=== PATIENT | female | born 1945 | race Caucasian/White ===

== ENCOUNTER 2017-07-18 13:32 | Inpatient (IN) | payer OTHER, MEDICAID ==
[~2017-07-18] VITALS: Ht 162.6 cm; Wt 71.9 kg
[2017-07-18 14:04] VITALS: Ht 162.6 cm; Wt 71.9 kg
[2017-07-18 14:33] LABS: microscopic required? NO
[2017-07-18 15:28] LABS: BASOPHIL % 0.2 % (0-2); PLATELET COUNT 228 x10^3mcL (130-400); RED CELL DISTRIBUTION WIDTH 12.8 % (11.5-14.5)
[2017-07-18 15:30] LABS: urine erythrocyte NEGATIVE (NEGATIVE)
[2017-07-18 15:32] LABS: ALKALINE PHOSPHATASE 69 U/L (46-116); ALT/SGPT 34 U/L (14-59); AMYLASE 29 U/L (25-115); AST/SGOT 18 U/L (15-37); BILIRUBIN TOTAL 0.3 mg/dL (0.20-1.00); CALCIUM 8.2 mg/dL (8.5-10.1); CARBON DIOXIDE 25.2 mmol/L (21-32); CHLORIDE SERUM 101 mmol/L (98-107); CREATININE SERUM 0.9 mg/dL (0.6-1.0); GLUCOSE SERUM 307 mg/dL (74-106); HDL CHOLESTEROL 40 mg/dL (40-60); LIPASE 86 IU/L (73-393); SODIUM SERUM 137 mmol/L (136-145); TOTAL PROTEIN, SERUM 6.6 g/dL (6.4-8.2)
[2017-07-18 15:34] LABS: ALBUMIN 3.3 g/dL (3.4-5.0); CHOLESTEROL 127 mg/dL (<200)
[2017-07-18 15:35] LABS: POTASSIUM SERUM 2.8 mmol/L (3.5-5.1)
[2017-07-18 16:24] LABS: MAGNESIUM 1.8 mg/dL (1.8-2.4)
[2017-07-18] MEDS ORDERED: CALCIUM 600 +1 EACH PO (16:37)
[2017-07-18] MEDS ORDERED: GLIPIZIDE2.5 M1 PO ×2 (16:38)
[2017-07-18] MEDS ORDERED: METFORMIN HYDR500 M1 PO (16:38)
[2017-07-18] MEDS ORDERED: NOR10 PO (16:39)
[2017-07-18] MEDS ORDERED: CAPTOPRIL25 MG PO (16:39)
[2017-07-18] MEDS ORDERED: LOVASTATIN20 MG PO (16:39)
[2017-07-18] MEDS ORDERED: PLA75 PO (16:40)
[2017-07-18] MEDS ORDERED: LEVOCETIRIZINE D5 M1 PO (16:40)
[2017-07-18] MEDS ORDERED: HYDROCHLOROTHIA25 MG PO (16:40)
[2017-07-18] MEDS ORDERED: NATURAL E400 IU PO (16:41)
[2017-07-18] MEDS ORDERED: ASPIR 8181 MG PO (16:41)
[2017-07-18 17:32] VITALS: BP 137/74
[2017-07-18 19:16] VITALS: BP 137/74
[2017-07-18 20:53] LABS: CALCIUM 8.3 mg/dL (8.5-10.1); CARBON DIOXIDE 26.6 mmol/L (21-32); CHLORIDE SERUM 102 mmol/L (98-107); CREATININE SERUM 0.8 mg/dL (0.6-1.0); GLUCOSE SERUM 338 mg/dL (74-106); POTASSIUM SERUM 4.3 mmol/L (3.5-5.1); SODIUM SERUM 136 mmol/L (136-145)
[2017-07-18 21:56] VITALS: BP 129/68
[2017-07-19 05:57] VITALS: BP 136/55
[2017-07-19 06:25] LABS: BASOPHIL % 0.1 % (0-2); PLATELET COUNT 236 x10^3mcL (130-400)
[2017-07-19 06:43] LABS: CALCIUM 8.5 mg/dL (8.5-10.1); CARBON DIOXIDE 24.3 mmol/L (21-32); CHLORIDE SERUM 105 mmol/L (98-107); CREATININE SERUM 0.8 mg/dL (0.6-1.0); GLUCOSE SERUM 296 mg/dL (74-106); MAGNESIUM 1.9 mg/dL (1.8-2.4); PHOSPHOROUS 1.9 mg/dL (2.5-4.9); POTASSIUM SERUM 4.2 mmol/L (3.5-5.1); SODIUM SERUM 137 mmol/L (136-145)
[2017-07-19 08:00] VITALS: BP 151/76
[2017-07-19 09:50] VITALS: BP 147/81
[2017-07-19 12:36] VITALS: BP 144/77
[2017-07-19] MEDS ORDERED: METFORMIN HCL1000 MG PO (13:17)
[2017-07-19] MEDS ORDERED: REG10 PO (13:17)
[2017-07-19 14:39] VITALS: BP 144/77
== END 2017-07-19 16:08 | disposition home or self-care (01) | DRG 640 ==
LOC: ED 13:32 → DU 15:47
PROVIDERS: Emergency Medicine; Family Medicine
DX: E87.6 Hypokalemia (principal); G93.41 Metabolic encephalopathy; E44.1 Mild protein-calorie malnutrition; I10 Essential (primary) hypertension; E78.00 Pure hypercholesterolemia, unspecified; E78.5 Hyperlipidemia, unspecified; E11.65 Type 2 diabetes mellitus with hyperglycemia; E11.43 Type 2 diabetes mellitus with diabetic autonomic (poly)neuropathy; K31.84 Gastroparesis; K76.0 Fatty (change of) liver, not elsewhere classified; Z53.29 Procedure and treatment not carried out because of patient's decision for other reasons; Z79.84 Long term (current) use of oral hypoglycemic drugs; Z82.49 Family history of ischemic heart disease and other diseases of the circulatory system; Z80.9 Family history of malignant neoplasm, unspecified; Z79.899 Other long term (current) drug therapy; Z79.82 Long term (current) use of aspirin; Z68.27 Body mass index [BMI] 27.0-27.9, adult
CPT/HCPCS: 82962; 83880; J2405; J2930; J3010; J3480; J7030; J7620; J8597; Q0092